=== PATIENT | female | born 1950 | race Caucasian/White ===

== ENCOUNTER → 2021-04-17 | Outpatient (CLI) | payer MEDICARE, OTHER ==
[~2021-04-17] MED LIST: ALLOPURINOL300 MG PO; AMLODIPINE BESYL5 MG PO; BAYER CHEWABLE81 MG PO; BENICAR HCT 401 EAC1 PO; BENZONATATE200 MG PO; CARVEDILOL6.25 MG PO; DEXAMETHASONE 44 MG PO; DILTIAZEM 24HR240 MG PO; DILTIAZEM ER300 MG PO; GLUCOPHAGE500 MG PO; HYDROCHLOROTH12.5 MG PO; LASIX20 MG PO; LEVOFLOXACIN500 MG PO; LISINOPRIL20 MG PO; LOMOTIL 2.5-0.1 EACH PO; MECLIZINE HCL25 MG PO; MELOXICAM15 MG PO; MONTELUKAST SOD10 MG PO; PREVACID 30 MG30 MG PO; SODIUM CHLORIDE1 G1 PO; VITAMIN D2 PO; ZANTAC150 MG PO; ZOCOR20 MG PO; ZOFRAN ODT 4 MG4 MG SL
== END ==
LOC: CT 08:30
DX: R09.89 Other specified symptoms and signs involving the circulatory and respiratory systems (principal); I65.23 Occlusion and stenosis of bilateral carotid arteries
CPT/HCPCS: 70496; 70498; Q9967

== ENCOUNTER 2021-06-13 13:52 | Inpatient (IN) | payer MEDICARE, OTHER ==
[~2021-06-13] VITALS: Ht 157.5 cm; Wt 90.5 kg
[~2021-06-13 13:52] MED LIST changes: -AMLODIPINE BESYL5 MG PO; -BENICAR HCT 401 EAC1 PO; -BENZONATATE200 MG PO; -CARVEDILOL6.25 MG PO; -DEXAMETHASONE 44 MG PO; -LEVOFLOXACIN500 MG PO; -LOMOTIL 2.5-0.1 EACH PO; -MONTELUKAST SOD10 MG PO; -SODIUM CHLORIDE1 G1 PO; -ZOFRAN ODT 4 MG4 MG SL
[2021-06-13 16:25] LABS: HEMOGLOBIN 13.3 gm/dl (12.3-15.3); RED BLOOD COUNT 4.64 M/UL (4.00-5.10); WHITE BLOOD COUNT 5.5 K/UL (4.5-11.0)
[2021-06-13] MEDS ORDERED: LOMOTIL 2.5-0.1 EACH PO (17:28)
[2021-06-13] MEDS ORDERED: ZOFRAN ODT 4 MG4 MG SL (17:28)
[2021-06-14] MEDS ORDERED: LEVOFLOXACIN500 MG PO (01:24)
[2021-06-14] MEDS ORDERED: BENZONATATE200 MG PO (01:24)
[2021-06-14] MEDS ORDERED: CARVEDILOL6.25 MG PO (01:25)
[2021-06-14] MEDS ORDERED: AMLODIPINE BESYL5 MG PO (01:27)
[2021-06-14] MEDS ORDERED: MONTELUKAST SOD10 MG PO (01:27)
[2021-06-14] MEDS ORDERED: BENICAR HCT 401 EAC1 PO (01:28)
[2021-06-14 20:21] LABS: BUN/CREATININE RATIO 14 (0-10)
[2021-06-15 09:09] LABS: BUN/CREATININE RATIO 17 (0-10)
[2021-06-15 13:07] LABS: BUN/CREATININE RATIO 21 (0-10)
[2021-06-16 02:36] LABS: HEMOGLOBIN 12.3 gm/dl (12.3-15.3); RED BLOOD COUNT 4.42 M/UL (4.00-5.10)
[2021-06-16 02:41] LABS: WHITE BLOOD COUNT 7.9 K/UL (4.5-11.0)
[2021-06-16 02:54] LABS: BUN/CREATININE RATIO 29 (0-10)
[2021-06-18 03:48] LABS: BUN/CREATININE RATIO 40 (0-10)
[2021-06-19 03:51] LABS: HEMOGLOBIN 12.9 gm/dl (12.3-15.3); RED BLOOD COUNT 4.64 M/UL (4.00-5.10); WHITE BLOOD COUNT 9.9 K/UL (4.5-11.0)
[2021-06-19 04:19] LABS: BUN/CREATININE RATIO 40 (0-10)
[2021-06-19] MEDS ORDERED: SODIUM CHLORIDE1 G1 PO (13:30)
[2021-06-19] MEDS ORDERED: DEXAMETHASONE 44 MG PO (13:30)
== END 2021-06-19 16:46 | disposition home or self-care (01) | DRG 177 ==
LOC: ER1 13:52 → CDU 20:34 → PROG CARE 06-14 12:00
PROVIDERS: Emergency Medicine; Internal Medicine; Internal Medicine Nephrology; Physician Assistant; ADMIT Internal Medicine
PROC: 8E0ZXY6 Isolation (ICD-10-PCS; principal; 2021-06-13)
PROC: XW033E5 Introduction of Remdesivir Anti-infective into Peripheral Vein, Percutaneous Approach, New Technology Group 5 (ICD-10-PCS; 2021-06-13)
PROC: 3E0333Z Introduction of Anti-inflammatory into Peripheral Vein, Percutaneous Approach (ICD-10-PCS; 2021-06-13)
DX: U07.1 COVID-19 (principal); J96.01 Acute respiratory failure with hypoxia; J12.82 Pneumonia due to coronavirus disease 2019; E22.2 Syndrome of inappropriate secretion of antidiuretic hormone; E11.9 Type 2 diabetes mellitus without complications; K21.9 Gastro-esophageal reflux disease without esophagitis; I11.0 Hypertensive heart disease with heart failure; I50.9 Heart failure, unspecified; M10.9 Gout, unspecified; Z79.4 Long term (current) use of insulin; Z79.82 Long term (current) use of aspirin; Z86.12 Personal history of poliomyelitis; Z98.51 Tubal ligation status; Z98.1 Arthrodesis status; Z88.6 Allergy status to analgesic agent; Z88.8 Allergy status to other drugs, medicaments and biological substances; Z82.49 Family history of ischemic heart disease and other diseases of the circulatory system; Z82.0 Family history of epilepsy and other diseases of the nervous system
CPT/HCPCS: 36415; 36600; 71045; 80048; 80053; 82533; 82803; 82962; 83735; 83880; 83930; 84295; 84439; 84443; 85025; 86140; 94640; 94664; 94760; 96374; 97116-GP-CQ; 97161; 99285; J0696; J1100; J1650; J1940; J2405; J7030; M0243; U0002

== ENCOUNTER → 2021-09-16 | Outpatient (CLI) | payer MEDICARE, OTHER ==
[~2021-09-16] MED LIST changes: +AMLODIPINE BESYL5 MG PO; +BENICAR HCT 401 EAC1 PO; +BENZONATATE200 MG PO; +CARVEDILOL6.25 MG PO; +DEXAMETHASONE 44 MG PO; +LEVOFLOXACIN500 MG PO; +LOMOTIL 2.5-0.1 EACH PO; +MONTELUKAST SOD10 MG PO; +SODIUM CHLORIDE1 G1 PO; +ZOFRAN ODT 4 MG4 MG SL
== END ==
LOC: KOH-I 13:25
DX: M54.50 Low back pain, unspecified (principal); M62.838 Other muscle spasm; M51.34 Other intervertebral disc degeneration, thoracic region; M51.36 Other intervertebral disc degeneration, lumbar region
CPT/HCPCS: 72070; 72100

== ENCOUNTER 2022-04-02 05:59 | Inpatient (IN) | payer MEDICARE, OTHER ==
[~2022-04-02] VITALS: Ht 157.5 cm; Wt 90.7 kg
[2022-04-02 08:18] LABS: HEMOGLOBIN 11.4 gm/dl (12.3-15.3); RED BLOOD COUNT 4.27 M/UL (4.00-5.10); WHITE BLOOD COUNT 7.9 K/UL (4.5-11.0)
[2022-04-02] MEDS ORDERED: HYDRALAZINE HCL25 MG PO (12:57)
[2022-04-02] MEDS ORDERED: MELOXICAM15 MG PO (12:58)
[2022-04-02] MEDS ORDERED: BENICAR HCT 401 EAC1 PO (13:00)
[2022-04-03 04:47] LABS: HEMOGLOBIN 11.2 gm/dl (12.3-15.3); RED BLOOD COUNT 4.06 M/UL (4.00-5.10)
--- NOTE | 2022-04-03 05:44 | NUR ---
PATIENT REFUSED SCDS
[2022-04-04 03:36] LABS: HEMOGLOBIN 10.7 gm/dl (12.3-15.3); RED BLOOD COUNT 3.96 M/UL (4.00-5.10)
[2022-04-04] MEDS ORDERED: DECADRON6 MG PO (09:57)
[2022-04-04] MEDS ORDERED: LEVOFLOXACIN750 MG PO (09:57)
[2022-04-04] MEDS ORDERED: CARVEDILOL6.25 MG PO (09:57)
[2022-04-04] MEDS ORDERED: HUMIBID LA TAB600 MG PO (09:57)
[2022-04-04] MEDS ORDERED: SODIUM CHLORIDE1 G1 PO (09:57)
[2022-04-04] MEDS ORDERED: COMBIVENT RESPIM4 GM INH (09:57)
--- NOTE | 2022-04-04 11:32 | NUR ---
HOME O2 EVALUATION PERFORMED. O2 SATURATION DROPPED TO 88% WITH OXYGEN OFF.
== END 2022-04-04 15:00 | disposition home or self-care (01) | DRG 177 ==
LOC: ER1 05:59 → CDU 09:04 → M/S 19:36
PROVIDERS: Emergency Medicine; Physician Assistant Medical; ADMIT Internal Medicine
PROC: 8E0ZXY6 Isolation (ICD-10-PCS; principal; 2022-04-02)
PROC: XW033E5 Introduction of Remdesivir Anti-infective into Peripheral Vein, Percutaneous Approach, New Technology Group 5 (ICD-10-PCS; 2022-04-02)
PROC: 3E0333Z Introduction of Anti-inflammatory into Peripheral Vein, Percutaneous Approach (ICD-10-PCS; 2022-04-03)
DX: U07.1 COVID-19 (principal); J12.82 Pneumonia due to coronavirus disease 2019; J96.01 Acute respiratory failure with hypoxia; J18.9 Pneumonia, unspecified organism; E87.1 Hypo-osmolality and hyponatremia; K56.609 Unspecified intestinal obstruction, unspecified as to partial versus complete obstruction; E78.5 Hyperlipidemia, unspecified; K21.9 Gastro-esophageal reflux disease without esophagitis; I50.9 Heart failure, unspecified; I11.0 Hypertensive heart disease with heart failure; D64.9 Anemia, unspecified; E66.9 Obesity, unspecified; Z86.12 Personal history of poliomyelitis; Z90.49 Acquired absence of other specified parts of digestive tract; Z98.51 Tubal ligation status; Z88.2 Allergy status to sulfonamides; Z88.8 Allergy status to other drugs, medicaments and biological substances; Z82.49 Family history of ischemic heart disease and other diseases of the circulatory system; Z98.890 Other specified postprocedural states; Z68.36 Body mass index [BMI] 36.0-36.9, adult
CPT/HCPCS: ECHO; 0240U; 36415; 36600; 71045; 80048; 80053; 82533; 82550; 82553; 82803; 83036; 83605; 83735; 83880; 84100; 84439; 84443; 84484; 84550; 85025; 85027; 86140; 87040; 93005; 93306; 94640; 94664; 94760; 96374; 99285; J0248; J0456; J0696; J1100; J3475; J7030